=== PATIENT | female | born 1975 | race Two or more races ===

== ENCOUNTER 2017-12-02 09:26 | Outpatient (CLI) | payer OTHER | END 2017-12-02 17:00 | disposition home or self-care (01) | LOC: MAMO-SONO 09:26 | DX: Z12.31 Encounter for screening mammogram for malignant neoplasm of breast (principal); N64.4 Mastodynia ==

== ENCOUNTER 2019-11-22 14:22 | Outpatient (CLI) | payer OTHER | END 2019-11-22 14:36 | disposition home or self-care (01) | LOC: MAMO-SONO 14:22 | DX: Z12.31 Encounter for screening mammogram for malignant neoplasm of breast (principal); N64.4 Mastodynia ==

== ENCOUNTER 2021-03-26 14:29 | Outpatient (CLI) | payer OTHER | END 2021-03-26 14:37 | disposition home or self-care (01) | LOC: MAMO-SONO 14:29 | PROVIDERS: ATTEND Internal Medicine Nephrology | DX: Z12.31 Encounter for screening mammogram for malignant neoplasm of breast (principal) ==

== ENCOUNTER 2022-11-23 09:45 | Outpatient (CLI) | payer OTHER | END 2022-11-23 09:56 | disposition home or self-care (01) | LOC: MAMO-SONO 09:45 | DX: R10.2 Pelvic and perineal pain (principal); N64.4 Mastodynia; Z12.31 Encounter for screening mammogram for malignant neoplasm of breast ==

== ENCOUNTER 2023-12-27 14:57 | Outpatient (CLI) | payer OTHER | END 2023-12-27 15:05 | disposition home or self-care (01) | LOC: MAMO-SONO 14:57 | PROVIDERS: ATTEND Urology | DX: N60.11 Diffuse cystic mastopathy of right breast (principal); N60.12 Diffuse cystic mastopathy of left breast; Z12.31 Encounter for screening mammogram for malignant neoplasm of breast ==

== ENCOUNTER 2025-01-03 11:47 | Outpatient (CLI) | payer OTHER | END 2025-01-03 11:52 | disposition home or self-care (01) | LOC: MAMO-SONO 11:47 | PROVIDERS: ATTEND Internal Medicine Endocrinology, Diabetes & Metabolism | DX: R92.8 Other abnormal and inconclusive findings on diagnostic imaging of breast (principal); Z12.31 Encounter for screening mammogram for malignant neoplasm of breast ==